=== PATIENT | female | born 1960 | race Caucasian/White ===

== ENCOUNTER 2022-09-09 13:48 | Emergency (ER) | payer BC, SELFPAY ==
[2022-09-09 14:00] VITALS: BP 141/81; PULSE 102; RESP 20; TEMP 37.2; O2SAT 95; BMI 23.8
--- NOTE | 2022-09-09 14:32 | EXP.UTC ---
Discharge Plan Disposition Patient Disposition: Home, Self-Care Condition: Good Prescriptions Prescriptions: New ciprofloxacin HCl 0.3 % drops See Rx Instructions .ROUTE .COMPLEX Qty: 5 0RF Rx Instructions: put 1-2 drps in affected eye(s) every 2hr up to 8 times/day x2days; then 4 times/day x5days Referrals Follow up/Referrals: Provider,Referral, MD [Primary Care Provider] - See instructions Activity Restrictions/Add. Instructions Additional Instructions/Restrictions: Wash hands well before and after applying drops to right eye Use drops as prescribed Follow up with Eye Doctor if no impromement or any worsening of symptoms Return if needed Clinical Impressions Clinical Impression: Conjunctivitis Instructions Patient Instructions: Conjunctivitis Discharge ED Provider: Jahaira Tarango [facility] General Stated complaint: red swollen eye Mode of Arrival: Ambulatory Source of Information: Patient Limitations: No Limitations Time Seen by Provider: 09/09/22 14:32 Description of Symptoms (Recalled from Triage Doc. by RN): pink eye HEENT Symptoms (Recalled from RN notes): Yes Resp Symptoms (Recalled from RN notes): No Skin Symptoms (Recalled from RN notes): No MS Symptoms (Recalled from RN notes): No Functional Status (Recalled from RN notes): n/a History of Present Illness Provider Complaint: Patient states that her grandson had pink eye last week and yesterday she woke up with her right eye matted together and having drainage States that she got OTC pink eye drops but they havent helped much States that today the redness was worse and drainage was more so she came in to get checked Related Data Previous Rx's Medication Instructions Recorded ciprofloxacin HCl 0.3 % eye drops See Rx Instructions ophthalmic 09/09/22 (eye) .COMPLEX #5 mL Allergies Allergy/AdvReac Type Severity Reaction Status Date / Time From Codeine Sulfate Allergy Unknown Uncoded 09/09/22 14:27 Worker's Comp Is this a Worker's Comp case?: No [facility] Disclaimer: The information contained in this section may have been updated after the patient was seen, as this information can be updated by other users. Social History Smoking Status: Unknown if ever smoked alcohol intake: never current occupational status: employed Travel in the last 8 weeks: None ROS Obtained: Yes All systems reviewed & no additional complaints except as documented and Yes Systems reviewed as appropriate & no additional complaints except as documented Constitutional Constitutional: Reports system reviewed and no additional complaints, except as documented and Reports as per HPI Eyes Eyes: Reports system reviewed and no additional complaints, except as documented, Reports as per HPI, Reports eye discharge and Reports irritation ENT Ears, Nose, Mouth, and Throat: Reports system reviewed and no additional complaints, except as documented and Reports as per HPI Cardiovascular Cardiovascular: Reports system reviewed and no additional complaints, except as documented and Reports as per HPI Respiratory Respiratory: Reports system reviewed and no additional complaints, except as documented and Reports as per HPI Musculoskeletal Musculoskeletal: Reports system reviewed and no additional complaints, except as documented and Reports as per HPI Physical Exam General General appearance: alert and in no apparent distress Eye Eye exam: Present conjunctival redness (right eye) and discharge (yellowish colored discharge noted) Respiratory Respiratory exam: Present normal lung sounds bilaterally; Absent respiratory distress or wheezes Cardiovascular Cardiovascular exam: Present regular rate, normal rhythm and normal heart sounds Abdominal Exam Abdominal exam: Present soft and normal bowel sounds; Absent distention or tenderness Neurological Exam Neurological exam: Present alert, oriented X3 and normal gait Medical Decision Making Petr Inquiry Pt receiv
[2022-09-09 15:11] VITALS: BP 141/81; PULSE 102; RESP 20; TEMP 37.2; O2SAT 95
== END 2022-09-09 15:10 | disposition home or self-care (01) ==
PROVIDERS: Emergency Provider Nurse Practitioner
DX: H10.31 Unspecified acute conjunctivitis, right eye (principal)
CPT/HCPCS: 99212; 99214; G0463

== ENCOUNTER 2024-09-10 10:46 | Emergency (ER) | payer OTHER, SELFPAY ==
[2024-09-10] VITALS (8 sets, daily range): BP systolic 126–151; BP diastolic 72–92; PULSE 66–81; RESP 16–18; TEMP 36.6–36.8; O2SAT 93–99; BMI 23.8
--- NOTE | 2024-09-10 11:50 | HMH.EDGENADL ---
Discharge Plan Disposition Patient Disposition: Home, Self-Care Prescriptions Prescriptions: No Action No Known Home Medications Referrals Follow up/Referrals: Jamshid Pepe DO [Staff Physician] - See instructions Provider,Referral, [Primary Care Provider] - See instructions Activity Restrictions/Add. Instructions Additional Instructions/Restrictions: Keep your knee wrapped with a Messi bandage to prevent swelling. Ice and take alternating tylenol and ibuprofen for pain. Return to the emergency department for new or worsening symptoms Clinical Impressions Clinical Impression: Injury of knee Print Language Print Language: Setswana Discharge ED Provider: Marcia Coelho General Adult HPI General Chief complaint: Fall Stated complaint: [id number] and swelling L knee Time Seen by Provider: 09/10/24 11:50 Mode of Arrival: Wheelchair Source of Information: Patient Description of Symptoms (Recalled from ER Triage Doc. by RN): pt states around 0100 her L leg got caught in the covers. While trying to get untangled she fell from the bed to the floor. pt states her only pain is her L kneee. robina is 10/10 and sharp in nature. pt has a small abrasion to the L elbow from the carpet. pt states she hit her head on the floor but it is not painful. NO LOC. pt does not take any blood thinners. pt took 500mg alieve 1hr [employer] History of Present Illness HPI narrative: Patient is a 64-year-old no past medical history presents emergency department with left knee pain. Patient was trying to get entangled and she fell from the bed to the floor and her knee twisted. Did hit the head but did not lose consciousness. Does not take any blood thinners. Unable to bear weight on her left leg due to significant pain. No numbness or tingling of the left lower extremity. Related Data Home Medications ?Medication ?Instructions ?Recorded ?Confirmed No Known Home Medications 09/10/24 09/10/24 Allergies Allergy/AdvReac Type Severity Reaction Status Date / Time codeine Allergy Unknown Verified 09/10/24 11:42 allergy reaction [facility] Disclaimer: The information contained in this section may have been updated after the patient was seen, as this information can be updated by other users. Social History (Updated 09/09/22 @ 14:45 by Jahaira Tarango APRN) Smoking Status: Former smoker alcohol intake: never current occupational status: employed Travel in the last 8 weeks: None Have you lived/traveled outside [place] in past 30 days?: No Contact w/someone who lives/traveled outside [place] past 30 days?: No Exposure to someone with infectious disease in past 14 days?: No Do you have a fever (greater than 100.4 F or 38 C)?: No Have you tested positive for COVID-19: No Exposed to someone with COVID-19 in past 14 days?: No Do you have a sore throat?: No Do you have a cough?: No Do you have any weakness?: No Do you have any diarrhea?: No Are you experiencing any unusual bleeding?: No Do you have any muscle aches/pain?: No Do you have any abdominal pain?: No Are you experiencing loss of taste or smell?: No ROS Obtained: Yes All systems reviewed & no additional complaints except as documented Physical Exam General General appearance: alert and in no apparent distress Head Head exam: atraumatic Eye Eye exam: Present normal appearance and PERRL ENT ENT exam: Present normal exam Neck Neck exam: Present normal inspection and full ROM; Absent tenderness Chest Chest inspection: Present normal inspection; Absent tenderness Respiratory Respiratory exam: Absent respiratory distress Cardiovascular Cardiovascular exam: Present regular rate and normal rhythm Abdominal Exam Abdominal exam: Present soft; Absent tenderness Extremities Exam Extremities exam: Present tenderness (Left knee, no laxity with anterior posterior drawer or varus or valgus stress, no joint effusion) and other (No tenderness to the pelvis with AP or lateral compression, neurovascularly intact bilateral upper and lower extremities); Absent joint swelling Neurological Exam Neurological exam: Present alert and oriented X3 Medical Decision Making Medical Records Screening: Per USPSTF and CDC recommendations, given the prevalence of disease in our region, it is our hospital?s policy to screen for HIV and viral Hepatitis for all patients aged 18 and over and those with ongoing risk factors. Petr Inquiry Pt receiving controlled substance: No Vital Signs: 09/10/24 11:01 09/10/24 11:21 09/10/24 11:30 Temperature 98.2 F Temperature Source Oral Pulse Rate 81 68 Pulse Rate [Left] 76 Respiratory Rate 18 Blood Pressure 138/87 126/72 Blood Pressure [Right Arm] 151/92 H Blood Pressure Mean Blood Pressure Mean [Right Arm] 111 Blood Pressure Source Blood Pressure Source [Right Arm] Automatic Cuff Blood Pressure Position Blood Pressure Position [Right Arm] Sitting 02 Sat by Pulse Oximetry 96 99 93 L Oxygen Delivery Method Room Air 09/10/24 12:00 09/10/24 13:00 09/10/24 13:30 Temperature Temperature Source Pulse Rate 75 66 76 Pulse Rate [Left] Respiratory Rate Blood Pressure 131/76 129/72 133/77 Blood Pressure [Right Arm] Blood Pressure Mean 98 Blood Pressure Mean [Right Arm] Blood Pressure Source Blood Pressure Source [Right Arm] Blood Pressure Position Blood Pressure Position [Right Arm] 02 Sat by Pulse Oximetry 94 L 98 96 Oxygen Delivery Method 09/10/24 14:00 09/10/24 14:17 Temperature 97.9 F Temperature Source Oral Pulse Rate 71 71 Pulse Rate [Left] Respiratory Rate 16 Blood Pressure 128/79 128/79 Blood Pressure [Right Arm] Blood Pressure Mean 105 Blood Pressure Mean [Right Arm] Blood Pressure Source Automatic Cuff Blood Pressure Source [Right Arm] Blood Pressure Position Sitting Blood Pressure Position [Right Arm] 02 Sat by Pulse Oximetry 98 Oxygen Delivery Method Room Air Orders (Tests/Meds): ORDERS Category Date Time Status CT bony pelvis Stat Cat Scan 09/10/24 11:[address] cervical spine wo con Stat Cat Scan 09/10/24 11:[address] head/brain wo con Stat Cat Scan 09/10/24 11:55 Completed Femur XR left 2 views [XR femur LT 2V] Stat Exams 09/10/24 11:55 Completed Fibula/tibia XR left 2 views [XR tibia fibula LT 2V] Exams 09/10/24 11:55 Completed Stat Hip XR left minimum 2 views [XR hip LT 2-3V w/pelvis] Exams 09/10/24 11:55 Completed Stat Knee XR left 3 views [XR knee LT 3V] Stat Exams 09/10/24 11:55 Completed Medical Decision Narrative: In summary, this 64-year-old female presents to the emergency department today with left knee pain traumatic. On initial evaluation patient is hemodynamically stable saturating properly on room air afebrile no acute distress. Differential diagnosis includes but is not limited to pelvic fracture extremity fracture tendon injury ligamentous injury cervical spine injury intracranial hemorrhage.. Based on these concerns, I ordered CT head C-spine x-rays of left hip femur knee tib-fib and CT pelvis.. XR personally interpreted demonstrates no acute fracture or dislocation CT imaging personally interpreted demonstrate no intracranial hemorrhage no cervical spine injury no pelvic fracture. Messi bandage was provided to patient with crutches. Full range of motion of the left knee with mild to moderate tenderness. Low suspicion of occult fracture as patient is ambulatory. High suspicion for strain or sprain. Patient given outpatient orthopedic surgery follow-up as needed for persistent pain. Instructed to GRACIELA. Critical Care Critical Care Time Critical Care Time: No
--- NOTE | 2024-09-10 11:55 | CT_ITS ---
FINAL REPORT TECHNIQUE: Thin section axial CT with sagittal reconstruction without contrast This study was performed with techniques to keep radiation doses as low as reasonably achievable, (ALARA). Individualized dose reduction techniques using automated exposure control or adjustment of mA and/or kV according to the patient''s size were employed. CLINICAL HISTORY: fall, nexus + FINDINGS: No fracture is seen. Alignment is normal. No obvious bony spinal canal stenosis is present. There are diffuse degenerative disc changes. Mild facet arthropathy is identified. IMPRESSION: No fracture or malalignment Reviewed, Interpreted and Dictated by Jacky Sandoval MD Transcribed by Marcelina Santoyo Authenticated and [facility]
--- NOTE | 2024-09-10 11:55 | CT_ITS ---
FINAL REPORT TECHNIQUE: Axial images through the pelvis was performed by computed tomography. Sagittal and coronal reformatted images were obtained and reviewed. This study was performed with techniques to keep radiation doses as low as reasonably achievable, (ALARA). Individualized dose reduction techniques using automated exposure control or adjustment of mA and/or kV according to the patient's size were employed. CLINICAL HISTORY: fall, hip pain FINDINGS: No acute fracture is identified. There is an old fracture of the left pubis symphysis. There is no dislocation or subluxation. No free fluid is seen in the pelvis. IMPRESSION: No acute bony abnormality. Reviewed, Interpreted and Dictated by Jacky Sandoval MD Transcribed by Marcelina Santoyo Authenticated and . [facility]
--- NOTE | 2024-09-10 11:55 | CT_ITS ---
FINAL REPORT TECHNIQUE: Axial image just through the head was performed by computed tomography. This study was performed with techniques to keep radiation doses as low as reasonably achievable, (ALARA). Individualized dose reduction techniques using automated exposure control or adjustment of mA and/or kV according to the patient's size were employed. CLINICAL HISTORY: fall, LOC FINDINGS: There is moderate generalized atrophy. No cortical edema is present. There is no mass or hemorrhage. Ventricles are normal. Bone windows show no skull fracture or obvious obstructive lesion. IMPRESSION: 1. No acute intracranial abnormality or obvious mass. Reviewed, Interpreted and Dictated by Jacky Sandoval MD Transcribed by Marcelina Santoyo Authenticated and [facility]
--- NOTE | 2024-09-10 11:55 | XR_ITS ---
FINAL REPORT CLINICAL HISTORY: fall, pain COMPARISON: None FINDINGS: Two views of the left femur show no evidence of an acute, displaced fracture or dislocation of the visualized bony architecture. The joint spaces appear normal. IMPRESSION: Unremarkable exam. Reviewed, Interpreted and Dictated by Jacky Sandoval MD Transcribed by Sosa Kingsley Authenticated and [facility]
--- NOTE | 2024-09-10 11:55 | XR_ITS ---
FINAL REPORT CLINICAL HISTORY: fall, pain COMPARISON: None FINDINGS: LEFT HIP: Two views of the left hip with an AP view of the pelvis demonstrate no acute fracture or dislocation. The joint spaces appear normal. The visualized bony structures are well aligned. No soft tissue abnormality is seen. IMPRESSION: No acute bony abnormality. Reviewed, Interpreted and Dictated by Jacky Sandoval MD Transcribed by Sosa Kingsley Authenticated and . [facility]
--- NOTE | 2024-09-10 11:55 | XR_ITS ---
FINAL REPORT CLINICAL HISTORY: fall, pain COMPARISON: None FINDINGS: Two views of the left tibia/fibula were obtained. There are post ORIF changes of the distal fibula. There is no acute fracture or dislocation. The joint spaces are intact. There is no soft tissue abnormality. IMPRESSION: No acute process. Reviewed, Interpreted and Dictated by Jacky Sandoval MD Transcribed by Sosa Kingsley Authenticated and [facility]
--- NOTE | 2024-09-10 11:55 | XR_ITS ---
FINAL REPORT CLINICAL HISTORY: fall, pain COMPARISON: None FINDINGS: LEFT KNEE 3 views of the left knee were obtained. There is no acute fracture or dislocation. Visualized joint spaces are normally aligned. Soft tissues are unremarkable. IMPRESSION: No acute bony abnormality. Reviewed, Interpreted and Dictated by Jacky Sandoval MD Transcribed by Sosa Kingsley Authenticated and [facility]
== END 2024-09-10 14:18 | disposition home or self-care (01) ==
PROVIDERS: Emergency Provider Student in an Organized Health Care Education/Training Program
DX: S80.912A Unspecified superficial injury of left knee, initial encounter (principal); W19.XXXA Unspecified fall, initial encounter
CPT/HCPCS: 70450; 72125; 72192; 73502; 73552; 73562; 73590; 99285

== ENCOUNTER 2024-09-14 11:27 | Inpatient (IN) | payer OTHER, SELFPAY ==
[2024-09-14] VITALS (10 sets, daily range): BP systolic 100–150; BP diastolic 49–73; PULSE 79–107; RESP 14–18; TEMP 36.6–37.3; O2SAT 91–100; BMI 21.9
--- NOTE | 2024-09-14 12:02 | CT_ITS ---
FINAL REPORT TECHNIQUE: Thin section axial images were obtained through the abdomen and pelvis after contrast injection per CT angiogram protocol. Multiplanar reconstruction images were obtained from the axial data. This exam was performed with techniques to keep radiation dose as low as reasonably achievable. This includes automated exposure control, adjustment of the MA and KVP, and iterative reconstruction technique. CLINICAL HISTORY: BRBPR, weakness COMPARISON: None FINDINGS: CTA: No abdominal aortic aneurysm or aortic dissection. Mesenteric arteries and renal arteries are patent without significant stenosis. The common iliac arteries, internal iliac arteries, and external iliac arteries are patent without stenosis. No active hemorrhage identified. NONVASCULAR: The lung bases are clear. The liver is homogeneous without focal lesion except for a small cyst adjacent to the gallbladder fossa. The gallbladder is present. The spleen, adrenal glands, and pancreas are without acute abnormality. The kidneys demonstrate no mass or hydronephrosis. There is a large hiatal hernia. No evidence of small bowel obstruction. Appendix is normal. Diverticulosis is more pronounced distally without evidence of acute diverticulitis. There is recanalization of periumbilical vein which extends into a small umbilical hernia. Small retroperitoneal lymph node does not meet size criteria for lymphadenopathy. No abdominal or pelvic ascites. Bones demonstrate an old fracture of the left superior pubic ramus. There is no acute osseous abnormality IMPRESSION: No aortic aneurysm. No evidence of active bleeding. No acute abnormality in the abdomen or pelvis. Diverticulosis. Reviewed, Interpreted and Dictated by Rebeca Tejeda MD Transcribed by Sosa Kingsley Authenticated and [facility]
[2024-09-14 12:08] LABS: Basophils # 0.1 K/mm3 (0-0.2); Basophils % 0.6 % (0.1-2.0); Eosinophils # 0.1 K/mm3 (0.0-0.4); Eosinophils % 0.7 % (0.1-12.0); Hematocrit 36.4 % (37.0-47.0); Hemoglobin 12.1 g/dL (12.2-16.2); Lymphocytes # 1.8 K/mm3 (0.7-4.5); Lymphocytes % 16.9 % (10-50); Mean Corpuscular HGB Conc 33.2 g/dL (31.8-35.4); Mean Corpuscular Hemoglobin 31.8 pg (27.0-31.2); Mean Corpuscular Volume 95.8 fl (81-99); Mean Platelet Volume 9.8 fl (7.4-10.4); Monocytes # 0.8 K/mm3 (0.1-1.0); Monocytes % 7.2 % (1.7-9.3); Neutrophils # 7.9 K/mm3 (1.8-7.8); Platelet Count 301 K/mm3 (142-424); Red Cell Distribution Width 14.3 % (11.5-17.5); White Blood Count 10.7 K/mm3 (4.8-10.8)
[2024-09-14 12:13] LABS: Chloride 101 mmol/L (98-107); Sodium 135 mmol/L (136-145)
[2024-09-14 12:15] LABS: Blood Urea Nitrogen 31 mg/dl (7-17); Creatinine Clearance Estimated 49 mL/min (50-200); Estimated Glomerular Filt Rate 124 ml/min (>60); GFR (African American) 150 ML/MIN (>60)
[2024-09-14 12:16] LABS: Alanine Aminotransferase 32 U/L (12-78); Albumin/Globulin Ratio 1.4 (1.1-1.8); Alkaline Phosphatase 88 U/L (38-126); Anion Gap 10.8 mEq/L (5-15); Aspartate Amino Transferase 52 U/L (14-36); Bilirubin,Total 1.3 mg/dl (0.2-1.3); Calcium 9.4 mg/dl (8.4-10.2); Carbon Dioxide 27 mmol/L (22.0-30.0); Globulin 2.9 g/dL (1.3-3.2); Glucose 173 mg/dl (74-100); Lipase 81 U/L (23-300); Potassium 3.8 mmoL/L (3.5-5.1); Total Protein,Serum 6.9 g/dl (6.3-8.2)
[2024-09-14] MEDS: ONDANSETRON 4MG/2ML VIAL 4 MG IV (12:16)
[2024-09-14] MEDS: LACTATED RINGERS 1000ML 1,000 ML 999 ML IV (12:16)
[2024-09-14] MEDS: 0.9 % SODIUM CHLORIDE 50 ML VIAL IV (12:41)
[2024-09-14] MEDS: SODIUM CHLORIDE 0.9% 10ML SYR (RAD ONLY) 10 ML IV (12:41)
[2024-09-14] MEDS: IOPAMIDOL-370 (76%);100ML BOTTLE 70 ML IV (12:41)
--- NOTE | 2024-09-14 12:41 | HMH.EDGENADL ---
Discharge Plan Disposition Patient Disposition: Admitted Chief Complaint: GI Bleed Prescriptions Prescriptions: No Action No Known Home Medications Referrals Follow up/Referrals: Provider,Referral, MD [Primary Care Provider] - See instructions Clinical Impressions Clinical Impression: Acute upper gastrointestinal bleeding Instructions Patient Instructions: DI for Gastrointestinal Bleeding Print Language Print Language: Thai Discharge ED Provider: Lincoln Steele General Adult HPI General Chief complaint: GI Bleed Stated complaint: AO3/20@home, bleeding from LT knee Time Seen by Provider: 09/14/24 11:43 Mode of Arrival: Ambulatory Source of Information: Patient Description of Symptoms (Recalled from ER Triage Doc. by RN): pt states around 0130 she started having liquid stools that were purple with large purple clots. pt states she believes it to be blood. pt states she had another episode around 0900. pt denies abd pain, N/V, chest pain or urinary issues. pt reports that she fell on and was worked up here. pt reports that there was no LOC. She does not take any anticoags. History of Present Illness HPI narrative: Please note that above description of symptoms, in this electronic medical record under categorization of recalled from ER triage doctor by RN are reflective of an initial nursing assessment, however, is not reflective of my full history and physical exam that was personally taken and clarified. Consequentially, this preceding description of symptoms, which may include the patient's categorized chief complaint in the EMR, do not reflect my personal clinical impression, and the ultimate description of history of present illness and patient stated complaints should be deferred to this section of the note. Unless stated otherwise or congruent with this section of the note, additional signs, symptoms, or incongruence should be interpreted as inaccurate with my clinical impression. Related Data Home Medications ?Medication ?Instructions ?Recorded ?Confirmed No Known Home Medications 09/10/24 09/10/24 Allergies Allergy/AdvReac Type Severity Reaction Status Date / Time codeine Allergy Unknown Verified 09/10/24 11:42 allergy reaction [facility] Disclaimer: The information contained in this section may have been updated after the patient was seen, as this information can be updated by other users. Social History (Updated 09/09/22 @ 14:45 by Jahaira Tarango APRN) Smoking Status: Former smoker alcohol intake: never current occupational status: employed Travel in the last 8 weeks: None Have you lived/traveled outside US in past 30 days?: No Contact w/someone who lives/traveled outside US past 30 days?: No Exposure to someone with infectious disease in past 14 days?: No Do you have a fever (greater than 100.4 F or 38 C)?: No Have you tested positive for COVID-19: No Exposed to someone with COVID-19 in past 14 days?: No Do you have a sore throat?: No Do you have a cough?: No Do you have any weakness?: No Do you have any diarrhea?: No Are you experiencing any unusual bleeding?: No Do you have any muscle aches/pain?: No Do you have any abdominal pain?: No Are you experiencing loss of taste or smell?: No ROS Obtained: Yes All systems reviewed & no additional complaints except as documented Physical Exam General General appearance: alert Head Head exam: atraumatic and normocephalic Eye Eye exam: Present normal appearance, PERRL and EOMI Neck Neck exam: Present normal inspection, full ROM and trachea midline Respiratory Respiratory exam: Absent respiratory distress, wheezes, stridor, accessory muscle use or prolonged expiratory phase Cardiovascular Cardiovascular exam: Present other (Pulses equal symmetric in upper and lower extremities) Abdominal Exam Abdominal exam: Present soft; Absent distention, tenderness or pulsatile mass Extremities Exam Extremities exam: Absent edema Neurological Exam Neurological exam: Present alert, oriented X3 and CN II-XII intact; Absent motor sensory deficit Skin Skin exam: Present warm and dry; Absent diaphoresis or erythema Medical Decision Making Medical Records Medical records reviewed: Yes I reviewed the patient's medical records. Screening: Per USPSTF and CDC recommendations, given the prevalence of disease in our region, it is our hospital?s policy to screen for HIV and viral Hepatitis for all patients aged 18 and over and those with ongoing risk factors. Petr Inquiry Pt receiving controlled substance: No Petr was queried for this patient: No Vital Signs: 09/14/24 11:58 09/14/24 13:00 09/14/24 14:09 Temperature 98 F Temperature Source Oral Pulse Rate 91 H 88 Pulse Rate [Left] 107 H Respiratory Rate 18 18 Blood Pressure 120/73 150/65 H Blood Pressure [Right Arm] 114/68 Blood Pressure Mean [Right Arm] 83 Blood Pressure Source [Right Arm] Automatic Cuff Blood Pressure Position [Right Arm] Sitting 02 Sat by Pulse Oximetry 100 99 99 Oxygen Delivery Method Room Air Room Air Room Air 09/14/24 14:30 Temperature Temperature Source Pulse Rate 79 Pulse Rate [Left] Respiratory Rate Blood Pressure 100/68 L Blood Pressure [Right Arm] Blood Pressure Mean [Right Arm] Blood Pressure Source [Right Arm] Blood Pressure Position [Right Arm] 02 Sat by Pulse Oximetry 96 Oxygen Delivery Method Lab Data Lab Results 09/14/24 11:48: WBC 10.7, RBC 3.80 L, Hgb 12.1 L, Hct 36.4 L, MCV 95.8, MCH 31.8 H, MCHC 33.2, RDW 14.3, Plt Count 301, MPV 9.8, Neut % (Auto) 74.0, Lymph % (Auto) 16.9, [place] % (Auto) 7.2, Eos % (Auto) 0.7, Baso % (Auto) 0.6, Neut # (Auto) 7.9 H, Lymph # (Auto) 1.8, [place] # (Auto) 0.8, Eos # (Auto) 0.1, Baso # (Auto) 0.1, Sodium 135 L, Potassium 3.8, Chloride 101, Carbon Dioxide 27, Anion Gap 10.8, BUN 31 H, Creatinine 0.50 L, Estimated Creat Clear 49, Estimated GFR 124, Est GFR ( Amer) 150, Glucose 173 H, Calcium 9.4, Total Bilirubin 1.3, AST 52 H, ALT 32, Alkaline Phosphatase 88, Total Protein 6.9, Albumin 4.0, Globulin 2.9, Albumin/Globulin Ratio 1.4, Lipase 81, HCV Ab MARSHAL w/Rflx PCR Qn Negative, HIV Ag/Ab Combo Qual Negative 09/14/24 11:48 09/14/24 11:48 Orders (Tests/Meds): ED MEDICATIONS Generic Name Dose Route Start Last Admin Trade Name Freq PRN Reason Stop Dose Admin Sodium Chloride 10 ml 09/14/24 12:43 Sodium Chloride 0.9% 10ml Vial IV 10/14/24 12:42 NEEDED PRN dilute protonix Discontinued Medications Generic Name Dose Route Start Last Admin Trade Name Freq PRN Reason Stop Dose Admin Belladonna Alkaloids 60 ml 09/14/24 14:53 Belladonna Alkaloids 60 Ml Ml PO 09/14/24 14:54 ONCE ONE Lactated Ringer's 1,000 mls @ 999 mls/hr 09/14/24 12:02 09/14/24 12:16 Lactated Ringer's 1000 Ml Bag IV 09/14/24 13:02 999 mls/hr .Q1H1M ONE Administration Iopamidol 70 ml 09/14/24 12:39 09/14/24 12:41 Iopamidol-370 (76%);100ml Bottle IV 09/14/24 12:40 70 ml ONCE ONE Administration Ondansetron HCl 4 mg 09/14/24 12:02 09/14/24 12:16 Ondansetron 4mg/2ml Vial IV 09/14/24 12:03 4 mg ONCE ONE Administration Pantoprazole Sodium 40 mg 09/14/24 12:43 09/14/24 12:51 Pantoprazole 40mg Vial IV 09/14/24 12:44 40 mg ONCE ONE Administration Sodium Chloride 50 ml 09/14/24 12:39 09/14/24 12:41 0.9 % Sodium Chloride 50 Ml Vial IV 09/14/24 12:40 50 ml ONCE ONE Administration Sodium Chloride 10 ml 09/14/24 12:39 09/14/24 12:41 Sodium Chloride 0.9% 10ml Syr (Rad Only) IV 09/14/24 12:40 10 ml ONCE ONE Administration ORDERS Category Date Time Status CT angio abdomen pelvis Stat Cat Scan 09/14/24 12:02 Taken Gastroenterology Consult [Consult to Gastroenterology] Cons 09/14/24 14:55 Active [CONS] Routine CBC w/Auto Diff [Complete Blood Count Auto Diff] Stat Lab 09/14/24 11:48 Completed CMP [Comprehensive Metabolic Panel] Stat Lab 09/14/24 11:48 Completed HIV Combo Stat Lab 09/14/24 11:48 Completed Hepatitis C Ab Qual. W/ RFX Stat Lab 09/14/24 11:48 Completed Lactic Acid Stat Lab 09/14/24 12:02 Ordered Lipase Stat Lab 09/14/24 11:48 Completed Medical Decision Narrative: 64-year-old female no relevant medical history presenting with hematochezia. She states that last night, 09/13 in the late p.m., or today 09/14 in the early a.m., had abdominal cramping. Woke her up from sleep. Went to the bathroom and passed large clots. That has happened multiple times since. She states that the cramping comes, causes her to have bowel movement, she feels better after the bowel movement and also feels weak. Has never had anything like this in the past. Not on anticoagulation. No history of abnormal colonoscopy. History was obtained via conversation with patient. On arrival, patient hemodynamically stable, alert, oriented x4, appropriate, GCS 15, moving all extremities spontaneously, pupils equal and reactive to light. Full physical exam performed and significant for clinically well-appearing female no acute distress. She is mildly tachycardic, but speaking full sentences. Abdomen soft, nontender, nondistended. Overall unremarkable exam otherwise. Differential includes diverticulosis, malignancy, colitis, upper GI bleed, lower GI bleed, among others. Patient placed on continuous cardiac monitoring and continuous pulse ox with initial blood pressure 114/68, heart rate 107, saturation 99% on room air.patient given fluid bolus for symptoms. Workup independently interpreted and significant for hemoglobin 12.1 with no baseline with which to compare. Patient's chemistry nonactionable other than elevated BUN at 31 out of proportion to creatinine of 0.5. Patient was given PPI 40 mg IV for this. On independent interpretation of imaging, no acute intra-abdominal abnormality to explain bleed. See radiology read for further results. I contacted gastroenterology who recommended and agreed with admission for upper GI scope. I talked to the hospital medicine attending on and case was discussed, to be admitted for further definitive management. Folding Machine Feeder disclaimer Much of this encounter note is an electronic legger press operator spoken language to printed text. Electronic legger press operator of the spoken language may permit errors. Although I have reviewed the note, some errors may still exist. Critical Care Critical Care Time Critical Care Time: No
[2024-09-14] MEDS: PANTOPRAZOLE 40MG VIAL 40 MG IV ×2 (12:51→20:47)
[2024-09-14 13:27] LABS: HIV Combo NEGATIVE (Negative)
[2024-09-14 13:35] LABS: Hepatitis C Ab Qual. W/ RFX NEGATIVE (Negative)
--- NOTE | 2024-09-14 14:57 | PC.NURSE ---
House notified of admission.
--- NOTE | 2024-09-14 15:07 | PC.NURSE ---
Report called to Dalila STALLWORTH
[2024-09-14] MEDS: BELLADONNA ALKALOIDS 60 ML ML PO (15:10)
--- NOTE | 2024-09-14 15:24 | EXP.HP ---
History of Present Illness *Admission Date: 09/14/24 *Reason for visit:: Bright red blood per rectum *History of present illness: Jenna Wadsworth is a 64-year-old female with no significant medical history who presents with purple blood per rectum over the past day. She states earlier this morning it began as loose bright purple blood per rectum and had 2 episodes of this, and later in the morning had dark blood clots. She also endorses epigastric soreness over the past week, and has had difficulty with dysphagia during this period with solid foods. She states she has historically had abdominal discomfort with NSAIDs, but had to take an Aleve last night due to left knee pain after falling last week. She states she drinks alcohol daily, a few glasses of wine or beer a night. Otherwise no recent changes. Workup in the ED significant for hemoglobin 12.1 (unknown baseline), BUN elevated to 31, creatinine 0.50. Tachycardic to 100. CT abdomen/pelvis did not show acute findings. She was given 1 L LR bolus, IV Protonix 40 mg, GI cocktail. ED provider discussed case with GI who recommended admission and EGD in the morning, and possibly colonoscopy. Case discussed with ED provider decision was made to admit patient for GI bleed. [facility] Disclaimer: The information contained in this section may have been updated after the patient was seen, as this information can be updated by other users. Social History (Updated 09/09/22 @ 14:45 by Jahaira Tarango APRN) Smoking Status: Former smoker alcohol intake: never current occupational status: employed Travel in the last 8 weeks: None Have you lived/traveled outside US in past 30 days?: No Contact w/someone who lives/traveled outside US past 30 days?: No Exposure to someone with infectious disease in past 14 days?: No Do you have a fever (greater than 100.4 F or 38 C)?: No Have you tested positive for COVID-19: No Exposed to someone with COVID-19 in past 14 days?: No Do you have a sore throat?: No Do you have a cough?: No Do you have any weakness?: No Do you have any diarrhea?: No Are you experiencing any unusual bleeding?: No Do you have any muscle aches/pain?: No Do you have any abdominal pain?: No Are you experiencing loss of taste or smell?: No Meds Home Medications and Allergies Home Medications ?Medication ?Instructions ?Recorded ?Confirmed ?Type biotin 10,000 mcg capsule 10,000 mcg PO DAILY 09/14/24 09/14/24 History multivitamin with minerals 1 tab PO DAILY 09/14/24 09/14/24 History (Hair,Skin and Nails tablet) New Prescriptions to Start Prescriptions: Allergies Allergy/AdvReac Type Severity Reaction Status Date / Time codeine Allergy Unknown Verified 09/10/24 11:42 allergy reaction Exam Data for Last 24 hours Vital signs and Labs for Last 24 Hours: Temp Pulse Resp BP Pulse Ox O2 Del Method 97.9 F 84 14 109/60 L 96 Room Air 09/14/24 15:08 09/14/24 15:08 09/14/24 15:08 09/14/24 15:08 09/14/24 14:30 09/14/24 14:09 Laboratory Results - last 24 hr 09/14/24 11:48: WBC 10.7, RBC 3.80 L, Hgb 12.1 L, Hct 36.4 L, MCV 95.8, MCH 31.8 H, MCHC 33.2, RDW 14.3, Plt Count 301, MPV 9.8, Neut % (Auto) 74.0, Lymph % (Auto) 16.9, [place] % (Auto) 7.2, Eos % (Auto) 0.7, Baso % (Auto) 0.6, Neut # (Auto) 7.9 H, Lymph # (Auto) 1.8, [place] # (Auto) 0.8, Eos # (Auto) 0.1, Baso # (Auto) 0.1, Sodium 135 L, Potassium 3.8, Chloride 101, Carbon Dioxide 27, Anion Gap 10.8, BUN 31 H, Creatinine 0.50 L, Estimated Creat Clear 49, Estimated GFR 124, Est GFR ( Amer) 150, Glucose 173 H, Calcium 9.4, Total Bilirubin 1.3, AST 52 H, ALT 32, Alkaline Phosphatase 88, Total Protein 6.9, Albumin 4.0, Globulin 2.9, Albumin/Globulin Ratio 1.4, Lipase 81, HCV Ab MARSHAL w/Rflx PCR Qn Negative, HIV Ag/Ab Combo Qual Negative I & O for Last 24 hours: Intake & Output 09/11/24 09/12/24 09/13/24 03/25/25 23:59 23:59 23:59 23:59 Weight 54.431 kg Constitutional Constitutional: no acute distress *Routine HEENT Exam Head: Present normocephalic Eye: Present EOMI and PERRL ENT: Present mucous membranes moist *Routine Neck Exam Neck: Present supple; Absent lymphadenopathy *Routine Respiratory Exam Respiratory: Present CTA bilaterally *Routine Cardiovascular Exam Cardiovascular: Present RRR *Routine Abdominal Exam Abdominal: Present soft and normoactive bowel sounds; Absent tenderness *Routine Rectal Exam Rectal:: deferred *Routine Genitalia Exam Genitalia:: deferred *Routine Extremities Exam Extremities: Absent cyanosis, clubbing or edema *Routine Skin Exam Skin: Present warm; Absent rash *Routine Neurological Exam Neurological: Present alert and oriented X3 Assessment and Plan *Assessment and plan (1) Acute upper gastrointestinal bleeding: Status: Acute Category: Medical Code(s): K92.2 - Gastrointestinal hemorrhage, unspecified Plan Jenna Wadsworth is a 64-year-old female with no significant medical history who presents with purple blood per rectum over the past day. She states earlier this morning it began as loose bright purple blood per rectum and had 2 episodes of this, and later in the morning had dark blood clots. She also endorses epigastric soreness over the past week, and has had difficulty with dysphagia during this period with solid foods. She states she has historically had abdominal discomfort with NSAIDs, but had to take an Aleve last night due to left knee pain after falling last week. She states she drinks alcohol daily, a few glasses of wine or beer a night. Otherwise no recent changes. Workup in the ED significant for hemoglobin 12.1 (unknown baseline), BUN elevated to 31, creatinine 0.50. Tachycardic to 100. CT abdomen/pelvis did not show acute findings. She was given 1 L LR bolus, IV Protonix 40 mg, GI cocktail. ED provider discussed case with GI who recommended admission and EGD in the morning, and possibly colonoscopy. Case discussed with ED provider decision was made to admit patient for GI bleed. #GI bleed ? One day history of dark/purple blood per rectum, 1 week of epigastric soreness and dysphagia. ? Daily alcohol drinker. ? GI consulted, recommended EGD in the morning and possibly colonoscopy. N.p.o. at midnight, clear liquid diet for now. ? IV Protonix 40 mg twice daily, Carafate with meals. ? LR at 75 mL/h. ? Follow-up H/H at 9 PM. ? Follow-up CBC, iron studies in the morning. #Alcohol use disorder ? Will initiate CIWA tomorrow if needed. Full code DVT prophylaxis: SCDs
--- NOTE | 2024-09-14 15:24 | PC.NURSE ---
arrived by w/c from ED
[2024-09-14 16:04] LABS: Ferritin 125 ng/ml (11.1-264)
[2024-09-14 16:19] LABS: Iron 76 ug/dL (37-170)
[2024-09-14 16:28] LABS: Total Iron Binding Capacity 305 ug/dL (265-497)
[2024-09-14 16:52] LABS: Lactic Acid 1.8 mmol/L (0.7-2.1)
[2024-09-14] MEDS: SUCRALFATE 1GM TABLET 1 GM PO ×2 (16:55→20:46)
--- NOTE | 2024-09-14 17:31 | PC.NURSE ---
a &ox4. resting supine in bed. pt aware of need to call out when needing to use the BR due to recent falls. pt has been compliant. pt has not had a BM since admission. no complaints of pain this shift. H &H stable. GI to consult and scope scheduled for the morning. consent signed and on the chart. pt aware of need to be NPO at midnight and order placed. no needs at this time. call light within reach.
[2024-09-14] MEDS: LACTATED RINGERS 1000ML 1,000 ML 75 ML IV (18:22)
[2024-09-14] MEDS: SODIUM CHLORIDE 0.9% 10ML VIAL 10 ML IV (20:47)
[2024-09-15] VITALS (17 sets, daily range): BP systolic 96–129; BP diastolic 56–72; PULSE 70–90; RESP 16–22; TEMP 36.2–37.3; O2SAT 81–98; BMI 21.8
--- NOTE | 2024-09-15 05:01 | PC.NURSE ---
Pt. was admitted yesterday for GI Bleed. Pt. is alert and orientated x 4. Pt. on room air. Pt. denies any abdominal pain, nausea, vomiting, or bloody diarrhea/stools since admission. Pt. has been NPO since midnight for planned EDG procedure and possible colonscopy today. Pt. has IVF infusing. Pt. has trouble ambulating c/o left knee pain. Left knee wrapped in an antonio wrap. Pt. was up to shower last night did well sitting on a shower chair. Pt. slept well. VSS Personal items and call zuniga i n reach.
[2024-09-15 06:35] LABS: Basophils # 0.1 K/mm3 (0-0.2); Basophils % 0.7 % (0.1-2.0); Eosinophils # 0.2 K/mm3 (0.0-0.4); Eosinophils % 2.1 % (0.1-12.0); Hematocrit 25.5 % (37.0-47.0); Lymphocytes % 27.7 % (10-50); Mean Corpuscular HGB Conc 33.3 g/dL (31.8-35.4); Mean Corpuscular Hemoglobin 32.1 pg (27.0-31.2); Mean Corpuscular Volume 96.2 fl (81-99); Mean Platelet Volume 9.8 fl (7.4-10.4); Monocytes # 0.8 K/mm3 (0.1-1.0); Neutrophils # 4.1 K/mm3 (1.8-7.8); Neutrophils % 58.1 % (37.0-80.0); Platelet Count 202 K/mm3 (142-424); Red Blood Count 2.65 M/mm3 (4.20-5.40); Red Cell Distribution Width 14.6 % (11.5-17.5); White Blood Count 7.1 K/mm3 (4.8-10.8)
[2024-09-15 06:43] LABS: Alanine Aminotransferase 16 U/L (12-78); Albumin Level 2.6 g/dl (3.5-5.0); Albumin/Globulin Ratio 1.1 (1.1-1.8); Alkaline Phosphatase 56 U/L (38-126); Anion Gap 6.6 mEq/L (5-15); Aspartate Amino Transferase 29 U/L (14-36); Bilirubin,Total 0.7 mg/dl (0.2-1.3); Blood Urea Nitrogen 16 mg/dl (7-17); Calcium 8.3 mg/dl (8.4-10.2); Carbon Dioxide 27 mmol/L (22.0-30.0); Chloride 107 mmol/L (98-107); Cholesterol 120 mg/dl (140-200); Creatinine Clearance Estimated 48 mL/min (50-200); Estimated Glomerular Filt Rate 84 ml/min (>60); GFR (African American) 102 ML/MIN (>60); Globulin 2.3 g/dL (1.3-3.2); Glucose 96 mg/dl (74-100); HDL Cholesterol 24 mg/dl (40-60); Magnesium 2.2 mg/dl (1.6-2.3); Potassium 3.6 mmoL/L (3.5-5.1); Sodium 137 mmol/L (136-145); Total Protein,Serum 4.9 g/dl (6.3-8.2); Triglycerides 97 mg/dl (30-150); VLDL Cholesterol 19 mg/dL (0-40)
--- NOTE | 2024-09-15 06:48 | PC.NURSE ---
Patient left floor with pre-op at 06:50.
--- NOTE | 2024-09-15 06:52 | P.HP_ITS ---
History of Present Illness *Admission Date: 09/14/24 *History of present illness: Mrs. Wadsworth is a 64-year-old female who is here for admission after having GI bleed. She had hematochezia with dark bloody stools/purple stools. And some abdominal discomfort. She has been taking NSAIDs and takes Aleve for her knee pain. She also drinks alcohol with wine or beer in the evenings. She has had some dysphagia. Her CAT scan showed no acute findings. Her BUN/creatinine ratio was greater than 20-1. Her hemoglobin and hematocrit were 12.1 and 36.4. EGD is performed for further evaluation of her GI bleeding. [facility] Disclaimer: The information contained in this section may have been updated after the patient was seen, as this information can be updated by other users. Social History (Updated 09/09/22 @ 14:45 by Jahaira Tarango APRN) Smoking Status: Former smoker alcohol intake: never current occupational status: employed Travel in the last 8 weeks: None Have you lived/traveled outside US in past 30 days?: No Contact w/someone who lives/traveled outside US past 30 days?: No Exposure to someone with infectious disease in past 14 days?: No Do you have a fever (greater than 100.4 F or 38 C)?: No Have you tested positive for COVID-19: No Exposed to someone with COVID-19 in past 14 days?: No Do you have a sore throat?: No Do you have a cough?: No Do you have any weakness?: No Do you have any diarrhea?: No Are you experiencing any unusual bleeding?: No Do you have any muscle aches/pain?: No Do you have any abdominal pain?: No Are you experiencing loss of taste or smell?: No Other Medical History Have you received the Flu Vaccine for this season: No Have you received the Pneumonia Vaccine: No Review of Systems Review of Systems Review of systems (narrative): Negative *Cardiovascular Comments: Negative *Gastrointestinal Comments: Negative *Genitourinary Comments: Negative *Musculoskeletal Comments: Negative *Neurologic Comments: Negative Meds Home Medications and Allergies Home Medications ?Medication ?Instructions ?Recorded ?Confirmed ?Type biotin 10,000 mcg capsule 10,000 mcg PO DAILY 09/14/24 09/14/24 History multivitamin with minerals 1 tab PO DAILY 09/14/24 09/14/24 History (Hair,Skin and Nails tablet) New Prescriptions to Start Prescriptions: Allergies Allergy/AdvReac Type Severity Reaction Status Date / Time codeine Allergy Unknown Verified 09/10/24 11:42 allergy reaction Exam Data for Last 24 hours Vital signs and Labs for Last 24 Hours: Temp Pulse Resp BP Pulse Ox O2 Del Method 98.0 F 72 17 96/56 L 92 L Room Air 09/15/24 04:00 09/15/24 04:00 09/15/24 04:00 09/15/24 04:00 09/15/24 04:00 09/15/24 05:00 Laboratory Results - last 24 hr 09/14/24 11:48: WBC 10.7, RBC 3.80 L, Hgb 12.1 L, Hct 36.4 L, MCV 95.8, MCH 31.8 H, MCHC 33.2, RDW 14.3, Plt Count 301, MPV 9.8, Neut % (Auto) 74.0, Lymph % (Auto) 16.9, [place] % (Auto) 7.2, Eos % (Auto) 0.7, Baso % (Auto) 0.6, Neut # (Auto) 7.9 H, Lymph # (Auto) 1.8, [place] # (Auto) 0.8, Eos # (Auto) 0.1, Baso # (Auto) 0.1, Sodium 135 L, Potassium 3.8, Chloride 101, Carbon Dioxide 27, Anion Gap 10.8, BUN 31 H, Creatinine 0.50 L, Estimated Creat Clear 49, Estimated GFR 124, Est GFR ( Amer) 150, Glucose 173 H, Calcium 9.4, Iron 76, TIBC 305, Iron Saturation 24.47088, Ferritin 125, Total Bilirubin 1.3, AST 52 H, ALT 32, Alkaline Phosphatase 88, Total Protein 6.9, Albumin 4.0, Globulin 2.9, Albumin/Globulin Ratio 1.4, Lipase 81, HCV Ab MARSHAL w/Rflx PCR Qn Negative, HIV Ag/Ab Combo Qual Negative 09/14/24 16:26: Lactate 1.8 09/15/24 05:55: Sodium 137, Potassium 3.6, Chloride 107, Carbon Dioxide 27, Anion Gap 6.6, BUN 16 D, Creatinine 0.70 D, Estimated Creat Clear 48, Estimated GFR 84, Est GFR ( Amer) 102 D, Glucose 96 D, Calcium 8.3 L, Magnesium 2.2, Total Bilirubin 0.7, AST 29 D, ALT 16 D, Alkaline Phosphatase 56, Total Protein 4.9 L D, Albumin 2.6 L D, Globulin 2.3, Albumin/Globulin Ratio 1.1, Triglycerides 97, Cholesterol 120 L, VLDL Cholesterol 19, HDL Cholesterol 24 L, Cholesterol/HDL Ratio 5.0 H I & O for Last 24 hours: Intake & Output 09/12/24 09/13/24 09/14/24 09/15/24 23:59 23:59 23:59 23:59 Intake Total 250 / 1697 1447 / 1447 Output Total 0 / 0 0 / 0 Balance 250 / 1697 1447 / 1447 Weight 120 lb 118 lb 9.739 oz *Routine HEENT Exam Head: Present normocephalic Eye: Present EOMI and PERRL ENT: Present mucous membranes moist *Routine Neck Exam Neck: Present supple *Routine Respiratory Exam Respiratory: Present CTA bilaterally *Routine Cardiovascular Exam Cardiovascular: Present RRR *Routine Abdominal Exam Abdominal: Present soft and normoactive bowel sounds; Absent tenderness *Routine Rectal Exam Rectal:: deferred *Routine Genitalia Exam Genitalia:: deferred *Routine Extremities Exam Extremities: Absent cyanosis, clubbing or edema *Routine Skin Exam Skin: Present warm; Absent rash *Routine Neurological Exam Neurological: Present alert and oriented X3 Assessment and Plan *Assessment and plan (1) Acute upper gastrointestinal bleeding: Status: Acute Category: Medical Code(s): K92.2 - Gastrointestinal hemorrhage, unspecified (2) Hematochezia: Status: Acute Category: Medical Code(s): K92.1 - Melena (3) Melena: Status: Acute Category: Medical Code(s): K92.1 - Melena (4) Dysphagia: Status: Acute Category: Medical Code(s): R13.10 - Dysphagia, unspecified Plan A/P: 1. Acute upper GI bleeding with melena and hematochezia is the preprocedural diagnosis. She also has some dysphagia. The patient will be anesthetized/sedated using MAC sedation. The patient has been seen and examined. Cardiac and lung assessment prior to the examination is stable. Proceed with planned diagnostic EGD.
[2024-09-15 06:54] LABS: Direct LDL Cholesterol 65.42 mg/dL (100-129)
--- NOTE | 2024-09-15 06:57 | P.PCN_ITS ---
[facility] Procedure Note Date: 09/15/24 Time: 07:14 Procedure Note:: Upper Endoscopy Procedure Report: Esophagogastroduodenoscopy with submucosal epinephrine injection, gold probe ablation, Endo Clip placement, biopsy and TTS balloon dilation Endoscopost: Sharad Rush II, MD Referring Physician: None Date of Procedure: September 15, 2024 Equipment: Olympus GIF 190 standard upper endoscope Sedation: MAC sedation Indications: Mrs. Wadsworth is a 64-year-old female who is here for diagnostic up per endoscopy secondary to presumptive upper GI bleed. The patient presented with dark purple stools that began the night before last (at 1 AM on 09/14) and see had a large amount of gushing dark purple blood and some abdominal discomfort. The patient had her last bout of bleeding at 9:30 AM yesterday. She came to the ED at [facility]. She has had some epigastric abdominal soreness over the past week. She has taken Aleve twice daily since last or Friday. She drinks alcohol daily with a few glasses of wine or beer in the evenings. In the ED she had some tachycardia. Her CAT scan of the abdomen and pelvis was unremarkable. Her hemoglobin and hematocrit were 12.1 and 36.4. Patient was admitted, placed on IV PPI and rehydrated. The patient has had some dysphagia to large tablets. Procedure: Prior to the procedure, a history and physical exam was performed, and patient's medications and allergies were reviewed. The risks, benefits and alternatives of the sedation and procedure were discussed with the patient. All questions were answered and informed consent was obtained. The patient was brought to the procedure room. Patient identification and proposed procedure were verified by the physician and the nurse. The patient was placed in a left lateral decubitus position and the scope was passed under direct vision. Throughout the procedure, the patient's blood pressure, pulse, and oxygen saturations were monitored continuously. The upper GI endoscopy was accomplished without difficulty. The patient tolerated the procedure well. Findings: The scope was passed directly into the upper esophagus and advanced to the third portion of the duodenum. The second and third portion of duodenum and ampulla were normal. In the first portion of duodenum at the junction of the duodenal bulb were 2 ulcers 1 along the anterior medial wall that was clean- based and the second ulcer at the base/posterior wall of the duodenal bulb with a visible vessel and active heme oozing from this vessel. 1-10,000 epinephrine was injected at the periphery of this ulcer with 3 aliquots of 1 mL each. This was approximately 11 to 12 mm ulcer in the medial wall was a 8 to 10 mm ulcer. After injection of epinephrine, the gold probe was utilized to ablate the visible vessel successfully. Lastly, an Endo Clip was placed over the ulcer for complete closure. The scope was then withdrawn through a normal pylorus into the stomach. There was a clean-based 10 mm prepyloric gastric ulcer. Additionally, there were linear erosive breaks/tears of the mid proximal stomach that were not present at the outset of the case with clot and heme. These were circumferential in the proximal body of the stomach and felt to be related to barotrauma (only CO2 insufflation utilized). There was some mild atrophy of the fundus. Upon retroflexion there was a small 2 cm hiatal hernia. Biopsies were taken from the antrum and lesser curvature to rule out H. pylori. The scope was then withdrawn into the esophagus. There was a distal Schatzki's ring. This was originally 5 mm in diameter and this was dilated up to 20 mm with a TTS hydrostatic balloon. The remainder of the esophageal mucosa was normal. Impression: 1. Posterior wall duodenal bulb ulcer (11 to 12 mm) with visible vessel and active heme?status post epinephrine injection, gold probe ablation and Endo Clip closure 2. Medial wall duodenal bulb ulcer (8 to 10 mm)?clean-based 3. Prepyloric gastric ulcer (10 mm) clean-based 4. Mucosal breaks/tears possibly related to barotrauma from air insuf flation?unknown significance 5. Schatzki's ring (original diameter 5 mm) dilated to 20 mm 6. Small 2 cm hiatal hernia Plan: The upper GI bleed was secondary to the duodenal bulb ulcer with visible vessel. I would continue IV PPI therapy and clear liquids today. I would transition to oral PPI and advance diet tomorrow. I would avoid NSAIDs. I will check biopsies for H. pylori. Somewhat unknown significance of mucosal breaks/tears with gas insufflation?barotrauma. The patient remains clinically stable.
--- NOTE | 2024-09-15 06:58 | P.PNANES_ITS ---
[facility] Disclaimer: The information contained in this section may have been updated after the patient was seen, as this information can be updated by other users. Social History (Updated 09/09/22 @ 14:45 by Jahaira Tarango APRN) Smoking Status: Former smoker alcohol intake: never substance use type: denies use current occupational status: employed Travel in the last 8 weeks: None [facility] Anesthesia Checklist Patient Identification Patient Identification: Arm Band and Family Structural Data Admitted From: Home Planned Operative Procedure/s: EGD Consent for Planned Operative Procedure(s) Verified: Yes Verified Documents: Surgical Consent and History and Physical NPO Status Verified Time NPO: 00:00 Additional verifications Patient : No Anesthesia Reactions: No Hx Blood Transfusions: No Blood Transfusion Reaction: No Cephalosporin Allergy: No Previous Colonoscopy: No Airway Assessment Mallampati Score:: Class II C-Spine Mobility Assessed: Yes TMJ Mobility Assessed: Yes Dentition: Poor Dentition Neurological Assessment Level of Consciousness: Awake, Alert, Appropriate and Follows Commands Hx Seizures: No Numbness or tingling in extremities: No Anesthesia Plan Anesthesia Risk discussed: Yes ASA Class: II Anesthesia Type: MAC Preoperative Comments Pre-Operative Comments: No upper teeth. Hypertension.
[2024-09-15 07:08] LABS: Hemoglobin 8.5 g/dL (12.2-16.2)
[2024-09-15] MEDS: EPINEPHrine 0.1 MG/ML 10ML SYRINGE (CRASH CART) 1 MG (07:33)
[2024-09-15] MEDS: SUCRALFATE 1GM TABLET 1 GM PO ×4 (08:35→20:15)
[2024-09-15] MEDS: PANTOPRAZOLE 40MG VIAL 40 MG IV ×2 (08:35→20:15)
[2024-09-15] MEDS: SODIUM CHLORIDE 0.9% 10ML VIAL 10 ML IV (08:35)
[2024-09-15] MEDS: miSOPROStoL 200 MCG TABLET PO ×3 (08:35→20:15)
[2024-09-15 09:33] LABS: Iron 69 ug/dL (37-170)
[2024-09-15 09:44] LABS: Total Iron Binding Capacity 252 ug/dL (265-497)
[2024-09-15] MEDS: LACTATED RINGERS 1000ML 1,000 ML 75 ML IV (10:03)
[2024-09-15 10:04] LABS: Hemoglobin A1C 4.6 % (4.0-6.0)
[2024-09-15 10:09] LABS: Ferritin 93.8 ng/ml (11.1-264)
[2024-09-15 10:15] LABS: Thyroid Stimulating Hormone 2.91 uIU/mL (0.465-4.68)
--- NOTE | 2024-09-15 17:01 | PC.NURSE ---
pt resting supine in bed. a&ox4. EGD this am. tolerated well. post op vss. uses bedside commode with standby assistance. no reports of rectal bleeding, n/v, or pain. lr @75. tolerating clear liquid diet. no needs at this time. call light within reach.
--- NOTE | 2024-09-15 21:25 | P.PN_ITS ---
Subjective *Date: 09/15/24 *Time: 21:25 Interval history: Patient doing well this afternoon after EGD with ablation of duodenal ulcer. No further signs of bleeding. Vital signs stable. GI started misoprostol, will advance diet tomorrow. Continue clear liquid diet for now. Exam Data for Last 24 hours Vital signs and Labs for Last 24 Hours: Temp Pulse Resp BP Pulse Ox O2 Del Method O2 Flow Rate 99.2 F 88 16 123/56 L 81 L Room Air 5 09/15/24 20:00 09/15/24 20:00 09/15/24 20:00 09/15/24 20:00 09/15/24 20:00 09/15/24 20:00 09/15/24 07:17 Laboratory Results - last 24 hr 09/15/24 05:55: WBC 7.1 D, RBC 2.65 L D, Hgb 8.5 L D, Hct 25.5 L, MCV 96.2, MCH 32.1 H, MCHC 33.3, RDW 14.6, Plt Count 202 D, MPV 9.8, Neut % (Auto) 58.1, Lymph % (Auto) 27.7, [place] % (Auto) 11.0 H, Eos % (Auto) 2.1, Baso % (Auto) 0.7, Neut # (Auto) 4.1, Lymph # (Auto) 2.0, [place] # (Auto) 0.8, Eos # (Auto) 0.2, Baso # (Auto) 0.1, Sodium 137, Potassium 3.6, Chloride 107, Carbon Dioxide 27, Anion Gap 6.6, BUN 16 D, Creatinine 0.70 D, Estimated Creat Clear 48, Estimated GFR 84, Est GFR ( Amer) 102 D, Glucose 96 D, Hemoglobin A1c 4.6, Calcium 8.3 L, Magnesium 2.2, Iron 69, TIBC 252 L, Iron Saturation 27.29498, Ferritin 93.8, Total Bilirubin 0.7, AST 29 D, ALT 16 D, Alkaline Phosphatase 56, Total Protein 4.9 L D, Albumin 2.6 L D, Globulin 2.3, Albumin/Globulin Ratio 1.1, Triglycerides 97, Cholesterol 120 L, LDL Cholesterol Direct 65.42 L, VLDL Cholesterol 19, HDL Cholesterol 24 L, Cholesterol/HDL Ratio 5.0 H, TSH 2.91 I & O for Last 24 hours: Intake & Output 09/12/24 09/13/24 09/14/24 09/15/24 23:59 23:59 23:59 23:59 Intake Total 250 / 1697 2868 / 2868 Output Total 0 / 0 0 / 0 Balance 250 / 1697 2868 / 2868 Weight 54.431 kg 53.8 kg Constitutional Constitutional: no acute distress *Routine HEENT Exam Head: Present normocephalic Eye: Present EOMI and PERRL ENT: Present mucous membranes moist *Routine Neck Exam Neck: Present supple; Absent lymphadenopathy *Routine Respiratory Exam Respiratory: Present CTA bilaterally *Routine Cardiovascular Exam Cardiovascular: Present RRR *Routine Abdominal Exam Abdominal: Present soft and normoactive bowel sounds; Absent tenderness *Routine Extremities Exam Extremities: Absent cyanosis, clubbing or edema *Routine Skin Exam Skin: Present warm; Absent rash *Routine Neurological Exam Neurological: Present alert and oriented X3 Assessment and Plan *Assessment and plan (1) Acute upper gastrointestinal bleeding: Status: Acute Category: Medical Code(s): K92.2 - Gastrointestinal hemorrhage, unspecified Plan Jenna Wadsworth is a 64-year-old female with no significant medical history who presents with purple blood per rectum over the past day. She states earlier this morning it began as loose bright purple blood per rectum and had 2 episodes of this, and later in the morning had dark blood clots. She also endorses epigastric soreness over the past week, and has had difficulty with dysphagia during this period with solid foods. She states she has historically had abdominal discomfort with NSAIDs, but had to take an Aleve last night due to left knee pain after falling last week. She states she drinks alcohol daily, a few glasses of wine or beer a night. Otherwise no recent changes. Workup in the ED significant for hemoglobin 12.1 (unknown baseline), BUN elevated to 31, creatinine 0.50. Tachycardic to 100. CT abdomen/pelvis did not show acute findings. She was given 1 L LR bolus, IV Protonix 40 mg, GI cocktail. ED provider discussed case with GI who recommended admission and EGD in the morning, and possibly colonoscopy. Case discussed with ED provider decision was made to admit patient for GI bleed. #Upper GI bleed #Duodenal, gastric ulcers #Mucosal tears #Schatzki ring #Hiatal hernia ? One day history of dark/purple blood per rectum, 1 week of epigastric soreness and dysphagia. ? Daily alcohol drinker, also endorses stress from taking care of her mom with functional decline. ? Hemoglobin decreased from 12.1-8.5 overnight. Vital stable. ? GI consulted, s/p EGD 09/15/2024 with multiple ulcers s/p epinephrine injection, ablation. See full impression below. Will follow-up on H. pylori biopsies. ? IV Protonix 40 mg twice daily, started misoprostol 200 mg every 6 hours. Continue Carafate with meals. ? LR at 75 mL/h. ? Iron studies normal. ? Follow-up CBC, CMP in the morning. #Alcohol use disorder ? Will initiate CIWA tomorrow if needed. Stable at this time. EGD Impression per Dr. Rush: 1. Posterior wall duodenal bulb ulcer (11 to 12 mm) with visible vessel and active heme?status post epinephrine injection, gold probe ablation and Endo Clip closure 2. Medial wall duodenal bulb ulcer (8 to 10 mm)?clean-based 3. Prepyloric gastric ulcer (10 mm) clean-based 4. Mucosal breaks/tears possibly related to barotrauma from air insufflation?unknown significance 5. Schatzki's ring (original diameter 5 mm) dilated to 20 mm 6. Small 2 cm hiatal hernia Full code DVT prophylaxis: SCDs
[2024-09-16] VITALS: BP 109/59; PULSE 80; PULSE 87; RESP 16; TEMP 36.9; O2SAT 93
[2024-09-16] MEDS: miSOPROStoL 200 MCG TABLET PO ×2 (02:07→08:07)
[2024-09-16] MEDS: LACTATED RINGERS 1000ML 1,000 ML 75 ML IV (02:07)
--- NOTE | 2024-09-16 03:08 | PC.NURSE ---
Pt resting in low, locked bed with call light in reach. Respirations even and unlabored and resting with eyes closed. Room air. Tele. 20g RFA with LR infusing at 75mL/hr. No significant changes since initial shift biophysical.
[2024-09-16 04:00] VITALS: BP 123/64; PULSE 79; PULSE 80; RESP 16; TEMP 36.7; O2SAT 94; BMI 25.0
[2024-09-16] MEDS: SUCRALFATE 1GM TABLET 1 GM PO ×2 (05:37→11:02)
[2024-09-16 06:44] LABS: Basophils % 0.7 % (0.1-2.0); Eosinophils # 0.1 K/mm3 (0.0-0.4); Eosinophils % 2.3 % (0.1-12.0); Hematocrit 23.7 % (37.0-47.0); Lymphocytes % 33.6 % (10-50); Mean Corpuscular HGB Conc 33.8 g/dL (31.8-35.4); Mean Corpuscular Hemoglobin 32.1 pg (27.0-31.2); Mean Corpuscular Volume 95.2 fl (81-99); Mean Platelet Volume 9.7 fl (7.4-10.4); Monocytes # 0.8 K/mm3 (0.1-1.0); Monocytes % 12.7 % (1.7-9.3); Neutrophils % 50.2 % (37.0-80.0); Platelet Count 185 K/mm3 (142-424); Red Blood Count 2.49 M/mm3 (4.20-5.40); Red Cell Distribution Width 13.9 % (11.5-17.5); White Blood Count 6.1 K/mm3 (4.8-10.8)
[2024-09-16 07:08] LABS: Alanine Aminotransferase 13 U/L (12-78); Albumin Level 2.6 g/dl (3.5-5.0); Albumin/Globulin Ratio 1.1 (1.1-1.8); Alkaline Phosphatase 55 U/L (38-126); Anion Gap 6.5 mEq/L (5-15); Aspartate Amino Transferase 27 U/L (14-36); Bilirubin,Total 0.6 mg/dl (0.2-1.3); Blood Urea Nitrogen 7 mg/dl (7-17); Carbon Dioxide 27 mmol/L (22.0-30.0); Chloride 104 mmol/L (98-107); Creatinine Clearance Estimated 56 mL/min (50-200); Estimated Glomerular Filt Rate 101 ml/min (>60); GFR (African American) 122 ML/MIN (>60); Globulin 2.3 g/dL (1.3-3.2); Glucose 91 mg/dl (74-100); Magnesium 2.1 mg/dl (1.6-2.3); Potassium 3.5 mmoL/L (3.5-5.1); Sodium 134 mmol/L (136-145); Total Protein,Serum 4.9 g/dl (6.3-8.2)
[2024-09-16 08:00] VITALS: BP 120/69; PULSE 75; PULSE 80; RESP 18; TEMP 36.9; O2SAT 95
[2024-09-16] MEDS: SODIUM CHLORIDE 0.9% 10ML VIAL 10 ML IV (08:07)
[2024-09-16] MEDS: PANTOPRAZOLE 40MG VIAL 40 MG IV (08:07)
[2024-09-16 12:00] VITALS: BP 130/70; PULSE 82; RESP 17; TEMP 36.7; O2SAT 96
--- NOTE | 2024-09-16 12:18 | P.DS_ITS ---
General Admission date:: 09/14/24 HPI HPI HPI: Mrs. Wadsworth is a 64-year-old female who is here for admission after having GI bleed. She had hematochezia with dark bloody stools/purple stools. And some abdominal discomfort. She has been taking NSAIDs and takes Aleve for her knee pain. She also drinks alcohol with wine or beer in the evenings. She has had some dysphagia. Her CAT scan showed no acute findings. Her BUN/creatinine ratio was greater than 20-1. Her hemoglobin and hematocrit were 12.1 and 36.4. EGD is performed for further evaluation of her GI bleeding. Hospital Course Hospital Course Hospital Course: Jenna Wadsworth is a 64-year-old female with no significant medical history who presents with purple blood per rectum over the past day. She states earlier this morning it began as loose bright purple blood per rectum and had 2 episodes of this, and later in the morning had dark blood clots. She also endorses epigastric soreness over the past week, and has had difficulty with dysphagia during this period with solid foods. She states she has historically had abdominal discomfort with NSAIDs, but had to take an Aleve last night due to left knee pain after falling last week. She states she drinks alcohol daily, a few glasses of wine or beer a night. Otherwise no recent changes. Workup in the ED significant for hemoglobin 12.1 (unknown baseline), BUN elevated to 31, creatinine 0.50. Tachycardic to 100. CT abdomen/pelvis did not show acute findings. She was given 1 L LR bolus, IV Protonix 40 mg, GI cocktail. ED provider discussed case with GI who recommended admission and EGD in the morning, and possibly colonoscopy. Case discussed with ED provider decision was made to admit patient for GI bleed. #Upper GI bleed #Duodenal, gastric ulcers #Mucosal tears #Schatzki ring #Hiatal hernia ? One day history of dark/purple blood per rectum prior to admission, 1 week of epigastric soreness and dysphagia. ? Daily alcohol drinker, also endorses stress from taking care of her mom with functional decline. ? Hemoglobin decreased from 12.1-8.5 but remained stable thereafter. Vital stable. Iron studies normal. ? GI consulted, s/p EGD 09/15/2024 with multiple ulcers s/p epinephrine injection, ablation. Schatzki's ring was also dilated. See full impression below. Will follow-up on H. pylori biopsies. ? Started Protonix 40 mg twice daily, misoprostol 200 mg every 8 hours. Continue Carafate with meals. ? Will follow-up with GI within 2 weeks. Advised decreasing alcohol use and avoiding NSAIDs. Will follow-up on H. pylori biopsies. EGD Impression per Dr. Rush: 1. Posterior wall duodenal bulb ulcer (11 to 12 mm) with visible vessel and active heme?status post epinephrine injection, gold probe ablation and Endo Clip closure 2. Medial wall duodenal bulb ulcer (8 to 10 mm)?clean-based 3. Prepyloric gastric ulcer (10 mm) clean-based 4. Mucosal breaks/tears possibly related to barotrauma from air insufflation?unknown significance 5. Schatzki's ring (original diameter 5 mm) dilated to 20 mm 6. Small 2 cm hiatal hernia Total time spent on discharge: 32 minutes on chart review, counseling, documentation, and direct care with patient. Exam Data for Last 24 hours Vital signs and Labs for Last 24 Hours: Temp Pulse Resp BP Pulse Ox O2 Del Method O2 Flow Rate 98.4 F 75 18 120/69 95 Room Air 5 09/16/24 08:00 09/16/24 08:00 09/16/24 08:00 09/16/24 08:00 09/16/24 08:00 09/16/24 11:00 09/15/24 07:17 Laboratory Results - last 24 hr 09/16/24 06:15: WBC 6.1, RBC 2.49 L, Hgb 8.0 L, Hct 23.7 L, MCV 95.2, MCH 32.1 H , MCHC 33.8, RDW 13.9, Plt Count 185, MPV 9.7, Neut % (Auto) 50.2, Lymph % (Auto) 33.6, [place] % (Auto) 12.7 H, Eos % (Auto) 2.3, Baso % (Auto) 0.7, Neut # (Auto) 3.0, Lymph # (Auto) 2.0, [place] # (Auto) 0.8, Eos # (Auto) 0.1, Baso # (Auto) 0.0, Sodium 134 L, Potassium 3.5, Chloride 104, Carbon Dioxide 27, Anion Gap 6.5, BUN 7 D, Creatinine 0.60, Estimated Creat Clear 56, Estimated GFR 101, Est GFR ( Amer) 122, Glucose 91, Calcium 8.0 L, Magnesium 2.1, Total Bilirubin 0.6, AST 27, ALT 13, Alkaline Phosphatase 55, Total Protein 4.9 L, Albumin 2.6 L, Globulin 2.3, Albumin/Globulin Ratio 1.1 I & O for Last 24 hours: Intake & Output 09/13/24 09/14/24 09/15/24 09/16/24 23:59 23:59 23:59 23:59 Intake Total 250 / 1697 2868 / 3847 1339 / 1339 Output Total 0 / 0 100 / 100 0 / 0 Balance 250 / 1697 2768 / 3747 1339 / 1339 Weight 54.431 kg 53.8 kg 61.859 kg Constitutional Constitutional: no acute distress *Routine HEENT Exam Head: Present normocephalic Eye: Present EOMI and PERRL ENT: Present mucous membranes moist *Routine Neck Exam Neck: Present supple; Absent lymphadenopathy *Routine Respiratory Exam Respiratory: Present CTA bilaterally *Routine Cardiovascular Exam Cardiovascular: Present RRR *Routine Abdominal Exam Abdominal: Present soft and normoactive bowel sounds; Absent tenderness *Routine Extremities Exam Extremities: Absent cyanosis, clubbing or edema *Routine Skin Exam Skin: Present warm; Absent rash *Routine Neurological Exam Neurological: Present alert and oriented X3 Results Data Completed and Pending Labs on day of discharge: Labs from last 24 hours 09/16/24 06:15 WBC 6.1 RBC 2.49 L Hgb 8.0 L Hct 23.7 L MCV 95.2 MCH 32.1 H MCHC 33.8 RDW 13.9 Plt Count 185 MPV 9.7 Neut % (Auto) 50.2 Lymph % (Auto) 33.6 [place] % (Auto) 12.7 H Eos % (Auto) 2.3 Baso % (Auto) 0.7 Neut # (Auto) 3.0 Lymph # (Auto) 2.0 [place] # (Auto) 0.8 Eos # (Auto) 0.1 Baso # (Auto) 0.0 Sodium 134 L Potassium 3.5 Chloride 104 Carbon Dioxide 27 Anion Gap 6.5 BUN 7 D Creatinine 0.60 Estimated Creat Clear 56 Estimated GFR 101 Est GFR ( Amer) 122 Glucose 91 Calcium 8.0 L Magnesium 2.1 Total Bilirubin 0.6 AST 27 ALT 13 Alkaline Phosphatase 55 Total Protein 4.9 L Albumin 2.6 L Globulin 2.3 Albumin/Globulin Ratio 1.1 DS: Diagnosis Discharge Diagnosis (1) Acute upper gastrointestinal bleeding: Status: Acute Code(s): K92.2 - Gastrointestinal hemorrhage, unspecified Meds Home Medications and Allergies Home Medications ?Medication ?Instructions ?Recorded ?Confirmed ?Type biotin 10,000 mcg capsule 10,000 mcg PO DAILY 09/14/24 09/14/24 History multivitamin with minerals 1 tab PO DAILY 09/14/24 09/14/24 History (Hair,Skin and Nails tablet) misoprostol 200 mcg tablet 200 mcg PO Q8H 30 days #90 tabs 09/16/24 Rx pantoprazole 40 mg tablet,delayed 40 mg PO BID 30 days #60 tabs 09/16/24 Rx release (Protonix) sucralfate 1 gram tablet 1 g PO ACHS PRN Abdominal 09/16/24 Rx Discomfort 30 days #30 tabs New Prescriptions to Start Prescriptions: misoprostol Fareed,Kishan pantoprazole [Protonix] Kishan Guerrier sucralfate Kishan Guerrier Allergies Allergy/AdvReac Type Severity Reaction Status Date / Time codeine Allergy Unknown Verified 09/10/24 11:42 allergy reaction Discharge Plan Disposition Patient Disposition: Home, Self-Care Condition: Fair Discharge Order Discharge Orders: Discharge Order (Routine); Ordered 09/16/24 Ordered By: Kishan Guerrier Follow up Plan Follow up with: Sharad Rush II, MD [Staff Physician] - 09/27/24 (Please call office for follow up appointment.) Prescriptions/Medication Reconciliation: New sucralfate 1 gram Tablet 1 g PO ACHS PRN (Reason: Abdominal Discomfort) 30 Days Qty: 30 0RF misoprostol 200 mcg Tablet 200 mcg PO Q8H 30 Days Qty: 90 0RF pantoprazole [Protonix] 40 mg tablet,delayed release (DR/EC) 40 mg PO BID 30 Days Qty: 60 0RF Rx Instructions: Take on empty stomach. Continued biotin 10,000 mcg Capsule 10,000 mcg PO DAILY Hair,Skin and Nails Tablet 1 tab PO DAILY Problem Reconciliation Problems Reviewed?: Yes Patient Discharge Instructions Patient Instructions: Peptic Ulcer, Upper GI Endoscopy, DI for Gastrointestinal Bleeding, Gastrointestinal Bleeding Print Language: Monegasque Providers Primary Care Provider: Provider,Referral Admit Provider: Kishan Guerrier Attending Provider: Kishan Guerrier
--- NOTE | 2024-09-16 14:04 | PC.NURSE ---
Attempted to call patient's sonJosé Luis twice to let him know she is ready to be d/c. Awaiting phone call back.
--- NOTE | 2024-09-20 13:36 | SW/DCPLANNER ---
Spoke with patient on the phone. Patient stated that she is doing great. Patient stated that she is aware of her upcoming appointments. Patient stated that she was able to get her new medicine. Patient stated that she called to see what time for her follow up appointment and she was told that they will send her a letter. Patient stated that she has no concerns or questions at this time. Salo Manning
== END 2024-09-16 14:50 | disposition home or self-care (01) | DRG 379 ==
LOC: ER 11:46 → 2ND 15:02
PROVIDERS: Internal Medicine Gastroenterology; Admitting Provider Student in an Organized Health Care Education/Training Program; Emergency Provider Emergency Medicine; Visit Provider Student in an Organized Health Care Education/Training Program
PROC: 0DJ08ZZ Inspection of Upper Intestinal Tract, Via Natural or Artificial Opening Endoscopic (ICD-10-PCS; principal; 2024-09-15 07:00)
DX: K26.0 Acute duodenal ulcer with hemorrhage (principal); K44.9 Diaphragmatic hernia without obstruction or gangrene; F10.90 Alcohol use, unspecified, uncomplicated; K22.2 Esophageal obstruction; M25.562 Pain in left knee; K25.9 Gastric ulcer, unspecified as acute or chronic, without hemorrhage or perforation; Z79.1 Long term (current) use of non-steroidal anti-inflammatories (NSAID); Z79.899 Other long term (current) drug therapy; Z88.5 Allergy status to narcotic agent; Z87.891 Personal history of nicotine dependence
CPT/HCPCS: 36415; 74174; 80053; 80061; 82728; 83036; 83540; 83550; 83605; 83690; 83735; 84443; 85025; 86803; 87389; 88305; 99285; C1726; J0171; J2405; J7120; Q9967